=== PATIENT | female | born 1955 | race Caucasian/White ===

== ENCOUNTER → 2018-04-23 | Outpatient (CLI) | payer OTHER ==
[~2018-04-23] MED LIST: AMLO-145 PO; ASPI81TA52 PO; BENA20TA4 PO; DOCU-144 PO; GEMF600T8 PO; GLIP2.5T3 PO; HYDR-3498 PO; IOHEXOL 300MG/ML 150 ML BTL ONE; METF-849 PO; SOD CHLORIDE 0.9% 100 ML ONE
== END | disposition home or self-care (01) ==
LOC: C/S 08:43
PROVIDERS: ATTEND Internal Medicine Hematology & Oncology
DX: C50.919 Malignant neoplasm of unspecified site of unspecified female breast (principal)
CPT/HCPCS: 71260; Q9967; Z7610

== ENCOUNTER 2018-07-19 09:00 | Day surgery (SDC) | payer OTHER ==
[2018-07-19] VITALS (10 sets, daily range): BP systolic 122–147; BP diastolic 62–82; PULSE 88–95; RESP 15–22; Ht 160 cm; Wt 77.6 kg
[~2018-07-19] VITALS: Ht 160 cm; Wt 77.6 kg
[~2018-07-19 09:00] MED LIST changes: -IOHEXOL 300MG/ML 150 ML BTL ONE; -SOD CHLORIDE 0.9% 100 ML ONE
[2018-07-19] MEDS ORDERED: BENA20TA4 PO (09:25)
[2018-07-19] MEDS ORDERED: AMLO5TAB4 PO (09:25)
[2018-07-19] MEDS ORDERED: GLIM2TAB PO (09:26)
[2018-07-19] MEDS ORDERED: GABA300C16 PO (09:26)
[2018-07-19] MEDS ORDERED: LETR2.5T PO (09:27)
[2018-07-19] MEDS ORDERED: METF500T24 PO (09:27)
--- NOTE | 2018-07-19 09:36 | HPN ---
Date/Time of Note Date/Time of Note DATE: 07/19/18 TIME: 09:36 Interval H&P Admission Note Pt. seen H&P reviewed: No system changes INDIRA MONTELONGO MD Jul 19, 2018 09:36
[2018-07-19] MEDS ORDERED: SOD CHLORIDE 0.9% 1,000 ML IV SCH (10:00)
[2018-07-19] MEDS ORDERED: LIDOCAINE 1% (MDV) 20 ML INJ ONE (12:42)
[2018-07-19] MEDS ORDERED: MIDAZOLAM 1 MG/ML 2 ML INJ ONE (12:47)
[2018-07-19] MEDS ORDERED: LIDOCAINE 2% (SDV) 5 ML INJ ONE (12:47)
[2018-07-19] MEDS ORDERED: FENTAnyl 50 MCG/ML VIAL ONE (12:47)
[2018-07-19] MEDS ORDERED: PROPOFOL 20 ML ONE (12:47)
[2018-07-19] MEDS ORDERED: FENTAnyl 50 MCG/ML VIAL IV PRN (13:30)
[2018-07-19] MEDS ORDERED: DIPHENHYDRAMINE 50 MG INJ IV PRN (13:30)
[2018-07-19] MEDS ORDERED: HYDROmorphONE 1 MG/5 ML IV SYRINGE IV PRN ×2 (13:30)
[2018-07-19] MEDS ORDERED: ONDANSETRON 4 MG INJ IV PRN (13:30)
[2018-07-19] MEDS ORDERED: METOCLOPRAMIDE 10 MG INJ IV PRN (13:30)
[2018-07-19] MEDS ORDERED: MEPERIDINE 25 MG INJ IV PRN (13:30)
[2018-07-19] MEDS ORDERED: LABETALOL HCL 20MG INJ IV PRN (13:30)
[2018-07-19] MEDS ORDERED: hydrALAzine 20 MG INJ IV PRN (13:30)
--- NOTE | 2018-07-19 13:32 | PREAC ---
Date/Time of Note Date/Time of Note DATE: 07/19/18 TIME: 13:30 Anesthesia Eval and Record Evaluation Time Pre-Procedure Interview DATE: 07/19/18 TIME: 13:30 Age 63 Sex female NPO: 8 hrs Preoperative diagnosis Liver tumor Planned procedure CT guided liver biopsy Past Medical History Past Medical History: Includes Cardio: HTN, Dyslipidemia Endo: Diabetes GI: Morbid obesity Surgery & Anesthesia Issues No known issue Meds Anticoagulation: Yes Beta Stephane within 24 hr: No Reason Beta Stephane not given: Pt. not on B-Stephane Reported Medications Letrozole* (Letrozole*) 2.5 Mg Tablet, 2.5 MG PO DAILY, TAB 07/19/18 Metformin Hcl* (Metformin Hcl*) 500 Mg Tablet, 500 MG PO WITH BREAKFAST DINNE, #60 TAB 07/19/18 Gabapentin* (Gabapentin*) 300 Mg Capsule, 300 MG PO TID, #90 CAP 07/19/18 Glimepiride* (Glimepiride*) 2 Mg Tablet, 2 MG PO WITH BREAKFAST, TAB 07/19/18 Benazepril Hcl* (Benazepril Hcl*) 20 Mg Tablet, 20 MG PO DAILY, #30 TAB 07/19/18 Amlodipine Besylate* (Norvasc*) 5 Mg Tablet, 5 MG PO DAILY, TAB 07/19/18 Discontinued Reported Medications Amlodipine Besylate* (Amlodipine Besylate*) 5 Mg Tablet, 5 MG PO DAILY, #30 TAB 09/02/15 Aspirin (Low Dose Aspirin) 81 Mg Tablet.dr, 81 MG PO DAILY, #30 TAB 09/02/15 Metformin* (Glucophage*) 500 Mg Tab, 500 MG PO WITH MEALS, #90 TAB 09/02/15 Glipizide* (Glipizide ER*) 2.5 Mg Tab.er.24, 2.5 MG PO DAILY, TAB 09/02/15 Benazepril Hcl* (Benazepril Hcl*) 20 Mg Tablet, 20 MG PO DAILY, #30 TAB 09/02/15 Gemfibrozil* (Gemfibrozil*) 600 Mg Tablet, 600 MG PO BID, TAB 09/02/15 Discontinued Scripts Docusate Sodium* (Colace*) 100 Mg Capsule, 100 MG PO BID, #30 CAP Prov:FANG ALY 09/03/15 Hydrocodone Bit-Acetaminophen* ([place]*) 5-325 Mg Tab, 1 TAB PO Q6 PRN for PAIN, #15 TAB Prov:FANG ALY 09/03/15 Current Medications Sodium Chloride 1,000 ml @ 30 mls/hr Q24H IV Last administered on 07/19/18at 0 9:49; Admin Dose 30 MLS/HR; Start 07/19/18 at 10:00 Meds reviewed: Yes Allergies Coded Allergies: No Known Allergy (Unverified , 07/19/18) Allergies Reviewed: Yes Labs/Studies Labs Reviewed: Reviewed by anesthesiologist test: Negative Studies: ECG Pre-procedure Exam Last vitals Vital Signs Date Temp Pulse Resp B/P (MAP) Pulse Ox O2 O2 Flow FiO2 Time Delivery Rate 07/19/18 97.6 95 16 135/78 98 Room Air 09:37 (97) Airway: Adequate mouth opening, Adequate thyromental dist Mallampati: Mallampati II Teeth: Normal Lung: Normal Heart: Normal ASA Physical Status ASA physical status: 3 Emergency: E Planned Anesthetic General/MAC: MAC Planned Pain Management Parenteral pain med Pre-operative Attestations Prior to commencing anesthesia and surgery, the patient was re-evaluated, there was verification of: *The patient's identity *The results of appropriate recent lab work and preoperative vital signs *The above evaluation not changing prior to induction *Anesthetic plan, risk benefits, alternative and complications discussed with patient/family; questions answered; patient/family understands, accepts and wishes to proceed. AKHIL PORTER MD Jul 19, 2018 13:32
--- NOTE | 2018-07-19 13:59 | PAC ---
Date/Time of Note Date/Time of Note DATE: 07/19/18 TIME: 13:58 Post-Anesthesia Notes Post-Anesthesia Note Last documented vital signs Vital Signs Date Temp Pulse Resp B/P (MAP) Pulse Ox O2 O2 Flow FiO2 Time Delivery Rate 07/19/18 97.6 95 16 135/78 98 Room Air 09:37 (97) Activity: WNL Respiratory function: WNL Cardiovascular function: WNL Mental status: Baseline Pain reasonably controlled: Yes Hydration appropriate: Yes Nausea/Vomiting absent: Yes Comments BP:112/56, P:78, Spo2:100%, T:98 AKHIL PORTER MD Jul 19, 2018 13:59
== END 2018-07-19 16:03 | disposition home or self-care (01) ==
LOC: SDS 09:00
PROVIDERS: ATTEND Internal Medicine
DX: K76.0 Fatty (change of) liver, not elsewhere classified (principal); C50.912 Malignant neoplasm of unspecified site of left female breast
CPT/HCPCS: 47000; 77012; 82962; 88307; 88313; J2250; J3010; Z7610

== ENCOUNTER → 2018-08-08 | Outpatient (CLI) | payer OTHER ==
[~2018-08-08] MED LIST changes: -AMLO-145 PO; +AMLO5TAB4 PO; -ASPI81TA52 PO; -DOCU-144 PO; +GABA300C16 PO; -GEMF600T8 PO; +GLIM2TAB PO; -GLIP2.5T3 PO; -HYDR-3498 PO; +LETR2.5T PO; -METF-849 PO; +METF500T24 PO
--- NOTE | 2018-08-08 15:26 | RADRPT ---
Echocardiogram Report Patient Name: Karishma FLOREStient ID: [id number] : 1955 (63y 4m)Study Date: 08/08/2018 9:03:52 AM Gender: FAccession #: [id number] Tech: Meenakshi Naylor RDCS Location: EKG Ref.Physician: KADI CRAMER Height(Cm): BSA: Weight(Kg): Quality: AdequateOrder Physician: KADI CRAMER Account #: Procedures: Echocardiographic Report: Transthoracic echocardiogram with complete 2D, M-Mode, and doppler examination. Indications: Breast Cancer. Measurements: 2D/M Mode Doppler Measurement Value Normal Range Measurement Value Normal Range LVIDd 2D 4.3 [ 3.8 - 5.2 ] cm AV Peak Caio 1.9 [ 100.0 - 170.0 ] cm/sec LVIDs 2D 2.3 [ 2.2 - 3.5 ] cm AV Peak PG 14.0 [ 2.0 - 9.0 ] mmHg LVPWd 2D 1.0 [ 0.6 - 0.9 ] cm LVOT Peak Caio 1.0 [ 70.0 - 110.0 ] cm/sec IVSd 2D 1.1 [ 0.6 - 0.9 ] cm LVOT Peak PG 4.0 [ 2.0 - 6.0 ] mmHg IVS/LVPW 2D 1.1 ratio MV E Peak Caio 0.8 [ 60.0 - 130.0 ] cm/sec AoR Diam 2D 2.4 [ 2.3 - 3.1 ] cm MV A Peak Caio 1.3 [ 100.0 - 120.0 ] cm/sec LA/Ao 2D 1 ratio MV E/A 0.6 [ 0.8 - 1.5 ] ratio LA Dimen 2D 3.2 [ 2.7 - 3.8 ] cm MV Decel Time 180 [ 104 - 258 ] msec Lat E` Caio 0.1 [ 10.0 - 15.0 ] cm/sec MV E/A 0.6 [ 0.8 - 1.5 ] ratio TR Peak Caio 1.9 [ 100.0 - 280.0 ] cm/sec TR Peak PG 14.0 mmHg RVSP 17.0 [ 10.0 - 36.0 ] mmHg RA Pressure 3.0 mmHg Findings: Left Ventricle: Normal left ventricular systolic function. Normal left ventricular cavity size. Mild concentric left ventricular hypertrophy. Ejection fraction is visually estimated at 65 %. Tissue Doppler/Mitral Doppler indices are consistent with impaired relaxation (Stage I diastolic dysfunction). Right Ventricle: Normal right ventricular size. Normal right ventricular systolic function. Left Atrium: The left atrium is normal in size. Right Atrium: The right atrium is normal in size. Mitral Valve: Normal appearance and function of the mitral valve with trace physiologic regurgitation. Aortic Valve: No significant aortic stenosis or insufficiency. Aortic cusps appear mildly calcified. Tricuspid Valve: Normal appearance and function of the tricuspid valve with trace physiologic regurgitation. Pulmonic Valve: Normal pulmonic valve appearance. Pericardium: Normal pericardium with no significant pericardial effusion. Aorta: Normal aortic root. IVC: Normal size and normal respiratory collapse consistent with normal right atrial pressure. Conclusions: Normal left ventricular systolic function. Normal left ventricular cavity size. Mild concentric left ventricular hypertrophy. Ejection fraction is visually estimated at 65 %. Tissue Doppler/Mitral Doppler indices are consistent with impaired relaxation (Stage I diastolic dysfunction). Normal right ventricular size. Normal right ventricular systolic function. The left atrium is normal in size. The right atrium is normal in size. No significant valvular stenosis or regurgitation seen. Normal pericardium with no significant pericardial effusion. Echolucent lesions seen in the liver, further imaging recommended if clinically warranted. Electronically Signed By: Kee Simpson 2018-08-08 15:25:38 PDT
== END | disposition home or self-care (01) ==
LOC: EKG 08:43
PROVIDERS: ATTEND Internal Medicine Hematology & Oncology
DX: C50.919 Malignant neoplasm of unspecified site of unspecified female breast (principal)
CPT/HCPCS: 93306

== ENCOUNTER → 2018-09-18 | Outpatient (CLI) | payer OTHER ==
--- NOTE | 2018-09-19 17:19 | RADRPT ---
Vent Rate: 85 bpm RR Interval: 704 msec FL Interval: 152 msec QRS Duration: 83 msec QT Interval: 377 msec QTC Interval: 449 msec P-R-T [place]: 48 - 26 - 25 degrees Sinus rhythm...normal P axis, V-rate 50- 99 Electronically Signed By: Lewis Alvarez
== END | disposition home or self-care (01) ==
LOC: EKG 08:57
PROVIDERS: ATTEND Internal Medicine Hematology & Oncology
DX: C50.919 Malignant neoplasm of unspecified site of unspecified female breast (principal)
CPT/HCPCS: 93005